=== PATIENT | male | born 1975 | race Hispanic/Latino ===

== ENCOUNTER → 2022-07-02 | Outpatient (CLI) | payer OTHER ==
[~2022-07-02] MED LIST: AMLO-257 PO; CARV12.511 PO; FOLI1TAB85 PO; INSU100V3 SQ; ISOS30TA92 PO; NPH,100V SQ; OMEP20CA12 PO; PHOSLOC PO; PROM25TA7 PO; ZOLP10TA6 PO
== END | disposition home or self-care (01) ==
LOC: SHCH 07:36
PROVIDERS: ATTEND Internal Medicine Cardiovascular Disease
DX: I73.9 Peripheral vascular disease, unspecified (principal)
CPT/HCPCS: 93925

== ENCOUNTER → 2023-11-09 | Outpatient (CLI) | payer OTHER ==
[~2023-11-09] MED LIST changes: +CARV25TA PO; +INSLAN SQ; +INSU200I SQ; +MAGN250C PO; +MYCO250C7 PO; +ROSU5TAB12 PO; +SEMA2PEN SQ; +TACR1CAP10 PO; +TACR1GRA PO
== END | disposition home or self-care (01) ==
LOC: SHCH 07:31
PROVIDERS: ATTEND Internal Medicine Cardiovascular Disease
DX: I51.7 Cardiomegaly (principal); R01.1 Cardiac murmur, unspecified; I51.89 Other ill-defined heart diseases
CPT/HCPCS: 93306

== ENCOUNTER 2023-11-18 06:50 | Day surgery (SDC) | payer OTHER ==
[2023-11-12 11:36] LABS: BASOPHILS # (AUTO) 0.01 K/uL (0.00-0.20); BASOPHILS % (AUTO) 0.2 % (0.0-5.0); EOSINOPHILS # (AUTO) 0.04 K/uL (0.00-0.70); EOSINOPHILS % (AUTO) 0.7 % (0.0-8.0); HEMATOCRIT 45.1 % (42-54); IMMATURE GRANULOCYTE ABSOLUTE 0.02 K/uL (0-1); LYMPHOCYTES # (AUTO) 0.9 K/uL (1.0-4.8); LYMPHOCYTES % (AUTO) 15.8 % (21.0-51.0); MEAN CORPUSCULAR HEMOGLOBIN 28.8 pg (27.0-33.0); MEAN CORPUSCULAR HGB CONC 33.3 g/dL (32.0-36.0); MEAN CORPUSCULAR VOLUME 86.6 fL (79-99); MONOCYTES # (AUTO) 0.6 K/uL (0.1-1.0); MONOCYTES % (AUTO) 9.8 % (3.0-13.0); NEUTROPHILS # (AUTO) 4.4 K/uL (1.8-7.7); NEUTROPHILS % (AUTO) 73.2 % (40.0-77.0); PLATELET COUNT (AUTO) 218 K/uL (130-400); RED BLOOD CELL COUNT(AUTO) 5.21 MIL/uL (4.50-6.20); WHITE BLOOD COUNT (AUTO) 5.9 K/uL (4.8-10.8)
[2023-11-12 11:42] VITALS: BP 135/66; PULSE 73; RESP 18
[2023-11-12 11:57] LABS: ALBUMIN 3.8 g/dL (3.5-5.0); BILIRUBIN,TOTAL 0.4 mg/dL (0.2-1.0); POTASSIUM 4.6 mmol/L (3.5-5.1)
[2023-11-12 12:11] LABS: INR <= 0.93 (0.85-1.15); PROTHROMBIN TIME 10.7 SEC (9.6-11.6)
[2023-11-12 12:12] LABS: PARTIAL THROMBOPLASTIN TIME 27.4 SEC (26.3-35.5)
[2023-11-18] VITALS (16 sets, daily range): BP systolic 116–167; BP diastolic 65–82; PULSE 66–80; RESP 13–19
[~2023-11-18] VITALS: Ht 182.9 cm; Wt 112.3 kg
[~2023-11-18 06:50] MED LIST changes: -CARV12.511 PO; -FOLI1TAB85 PO; -INSU100V3 SQ; -NPH,100V SQ; -PHOSLOC PO; -PROM25TA7 PO; -ZOLP10TA6 PO
[2023-11-18] MEDS ORDERED: CEFAZOLIN SODIUM 1 GM VIAL ONE (07:12)
[2023-11-18] MEDS: 0.9% NACL 500ML IV.SOLN 500 ML IV ONE (07:25)
[2023-11-18] MEDS ORDERED: LIDOCAINE HCL 1% MDV 50ML VIAL ONE (07:31)
[2023-11-18] MEDS ORDERED: FAMOTIDINE 20MG VIAL IV ONE (07:38)
[2023-11-18] MEDS ORDERED: PROPOFOL 10 MG/ML 20ML VIAL IV ONE (07:39)
[2023-11-18] MEDS ORDERED: PHENYLEPHRINE HCL 10 MG/ML 1ML VIAL IV ONE (07:39)
[2023-11-18] MEDS ORDERED: LIDOCAINE PF 100MG/5ML (2%) SYRINGE 5ML ONE (07:39)
[2023-11-18] MEDS ORDERED: GLYCOPYRROLATE 0.2 MG/ML 5 ML VIAL ONE (07:39)
[2023-11-18] MEDS ORDERED: FENTANYL CITRATE PF 50 MCG/1 ML 2ML VIAL ONE (07:40)
[2023-11-18] MEDS ORDERED: SUCCINYLCHOLINE CHLORIDE 20 MG/ML 10 ML VIAL ONE (07:40)
[2023-11-18] MEDS ORDERED: ROCURONIUM BROMIDE 10MG/1ML 5ML VL ONE (07:40)
[2023-11-18] MEDS: CEFAZOLIN SODIUM 2 GM VIAL ONE (08:15)
[2023-11-18] MEDS ORDERED: MIDAZOLAM HCL 1 MG/ML 2ML VIAL ONE (08:28)
[2023-11-18] MEDS ORDERED: ONDANSETRON 4MG INJ ONE (09:19)
[2023-11-18] MEDS: BUPIVACAINE/PF 0.25% 30ML VIAL IJ ONE (09:35)
[2023-11-18] MEDS ORDERED: NEOSTIGMINE METHYLSULFATE 1MG/ML IV ONE (09:40)
== END 2023-11-18 11:45 | disposition home or self-care (01) ==
LOC: DAH 06:50
PROVIDERS: ATTEND Student in an Organized Health Care Education/Training Program
DX: I72.1 Aneurysm of artery of upper extremity (principal); E11.22 Type 2 diabetes mellitus with diabetic chronic kidney disease; I12.0 Hypertensive chronic kidney disease with stage 5 chronic kidney disease or end stage renal disease; N18.6 End stage renal disease; K21.9 Gastro-esophageal reflux disease without esophagitis; E03.9 Hypothyroidism, unspecified; Z79.899 Other long term (current) drug therapy; Z79.01 Long term (current) use of anticoagulants; Z79.4 Long term (current) use of insulin; Z94.0 Kidney transplant status; Z82.49 Family history of ischemic heart disease and other diseases of the circulatory system; Z83.3 Family history of diabetes mellitus; Z84.1 Family history of disorders of kidney and ureter; Z87.891 Personal history of nicotine dependence
CPT/HCPCS: 80053; 85025; 85610; 85730; 86850 ×2; 86900 ×2; 86901 ×2; 36415 ×2; 35011; 84132; 82948 ×2; 88304; A6260; A4663; J7040; J3490 ×3; J3010; J0690 ×2; J0330; J0665; J2001; J2250; J2704; J2405; J2710; J1644; J2371; A4649 ×2; C1713 ×3; A4215; A4223; A4222; A4221; A4600; A9272; G0168